=== PATIENT | female | born 1990 | race African-American/Black ===

== ENCOUNTER 2017-07-10 18:43 | Emergency (ER) | payer OTHER ==
[~2017-07-10] VITALS: Ht 167.6 cm; Wt 86.2 kg
[2017-07-10] MEDS ORDERED: MOBIC15 MG PO (20:31)
[2017-07-10] MEDS ORDERED: FLEXERIL PO (20:31)
== END 2017-07-10 20:54 | disposition home or self-care (01) ==
LOC: ER 18:43
DX: S29.012A Strain of muscle and tendon of back wall of thorax, initial encounter (principal); V43.52XA Car driver injured in collision with other type car in traffic accident, initial encounter; Y93.89 Activity, other specified; Y92.89 Other specified places as the place of occurrence of the external cause; Y99.8 Other external cause status